=== PATIENT | female | born 1965 ===

== ENCOUNTER 2018-04-18 08:56 | Outpatient (CLI) | payer SELFPAY | END 2018-04-18 08:57 | disposition home or self-care (01) | LOC: C.LAB 08:56 | DX: Z01.419 Encounter for gynecological examination (general) (routine) without abnormal findings (principal) ==

== ENCOUNTER 2018-04-19 13:09 | Outpatient (CLI) | payer SELFPAY | END 2018-04-19 13:10 | disposition home or self-care (01) | LOC: C.LAB 13:09 | DX: Z01.419 Encounter for gynecological examination (general) (routine) without abnormal findings (principal) ==

== ENCOUNTER 2018-05-05 11:33 | Outpatient (CLI) | payer OTHER, SELFPAY | END 2018-05-05 11:34 | disposition home or self-care (01) | LOC: C.USIC 11:33 | DX: N84.1 Polyp of cervix uteri (principal); Z78.0 Asymptomatic menopausal state ==